=== PATIENT | male | born 1970 | race Caucasian/White ===

== ENCOUNTER 2016-12-18 08:55 | Day surgery (SDC) | payer OTHER ==
[~2016-12-18] VITALS: Ht 182.9 cm; Wt 87.0 kg
[~2016-12-18 08:55] MED LIST: 0.9% Sodium Chloride 1,000 ML IV SCH; ALBU8.5H2 INHALATION; AZEL23SP NS; CETI10CA PO; CYCL5TAB PO; ESOM40CA41 PO; FLUT16SP NS; MELO7.5O PO; RANI150T11 PO; Sodium Chloride LOK Flush 10 mL Syringe IV PRN; fentaNYL-PF 50 mCg/mL 2 mL Inj IVPUSH PRN
[2016-12-18 09:23] VITALS: BP 118/78; PULSE 73; O2SAT 100
[2016-12-18 10:11] VITALS: BP 116/73; PULSE 90; RESP 16; O2SAT 100
[2016-12-18 10:21] VITALS: BP 106/68; PULSE 82; RESP 16; O2SAT 100
--- NOTE | 2016-12-18 10:28 | ENDO ---
[address] [address] ENDOSCOPY PROCEDURE PATIENT: JASON EDDY : 1970 MR#: [id number] ADMIT: 12/18/2016 JOB ID: [id number] DATE: 12/18/2016 TYPE OF OPERATION: 1. Esophagogastroduodenoscopy with biopsy. 2. Colonoscopy with biopsy. PREOPERATIVE DIAGNOSIS(ES): 1. Gastroesophageal reflux disease. 2. History of abnormal polyps of the colon. POSTOPERATIVE DIAGNOSIS(ES): 1. Normal upper endoscopy, status post biopsy. 2. Sigmoid diverticulosis, mild. 3. A 2 mm sigmoid polyp removed by cold biopsy forceps. ANESTHESIA: 1. Fentanyl 100 mcg. 2. Versed 7 mg IV administered. COMPLICATIONS: None. BLOOD LOSS: Minimal. DESCRIPTION OF PROCEDURE: After risks and benefits were explained to the patient, informed consent was obtained. After anesthesia administered, upper endoscope was then inserted into mouth intubating the esophagus, stomach, second portion of duodenum, and the mucosa carefully examined. After the procedure was done, the scope was withdrawn and the procedure terminated. A colonoscope was then inserted from the rectum to the cecum. Mucosa carefully examined. Prep of the patient was excellent. After the procedure was done, the scope was withdrawn and the procedure terminated. FINDINGS: Upon inspection of the esophagus, the esophagus was normal without masses, ulcers or lesions. Z-line located at 40 cm from incisors. Upon entering the stomach, the stomach was normal without masses, ulcers or lesions. Retroflexion was normal. Duodenal bulb, first and second portion were normal. Biopsy of the antrum of the stomach and distal esophagus. Upon inspection of the anus, no masses, hemorrhoids, ulcers, or fissures that were seen. Throughout the entire examination, there was mild sigmoid diverticulosis. There was a 2 mm sigmoid colon polyp removed by cold biopsy forceps. Retroflexion was normal. IMPRESSIONS: 1. Normal upper endoscopy, status post biopsy. 2. Sigmoid diverticulosis. 3. A 2 mm sigmoid polyp removed by cold biopsy forceps. RECOMMENDATION: Await pathology results. Repeat colonoscopy in five years given history of tubular adenoma polyps. Followup in GI clinic as needed.
[2016-12-18 10:31] VITALS: BP 112/67; PULSE 89; RESP 16; O2SAT 100
--- NOTE | 2016-12-19 15:21 | PATH ---
SURGICAL PATHOLOGY Attending Physician:Gal Peterson MD CASE STATUS: Signed Out PATIENT NAME: JASON EDDY PID: [id number] : 1970 DATE COLLECTED:12/18/2016 17:38 SPECIMEN: 1: Stomach, Antrum, Biopsy 2: Gastric, Biopsy 3: Esophagus, Biopsy 4: Colon, Biopsy CLINICAL HISTORY: 1). ANTRUM BIOPSY 2). GASTRIC BIOPSY 3). DISTAL ESOPHAGUS BIOPSY 4). SIGMOID POLYP FINAL DIAGNOSIS: 1.ANTRUM BIOPSY: ANTRAL MUCOSA WITH NO DIAGNOSTIC ALTERATIONS. Negative for Helicobacter organisms. Negative for intestinal metaplasia. Negative for dysplasia and malignancy. 2.GASTRIC BIOPSY: BODY-TYPE MUCOSA WITH NO DIAGNOSTIC ALTERATIONS. Negative for Helicobacter organisms. Negative for intestinal metaplasia. Negative for dysplasia and malignancy. 3.DISTAL ESOPHAGUS BIOPSY: SQUAMOUS MUCOSA WITH NO DIAGNOSTIC ALTERATIONS. Negative for intestinal/Duffy' s metaplasia. Negative for dysplasia and malignancy. 4.SIGMOID POLYP: BENIGN COLONIC MUCOSA WITH INTRAMUCOSAL LYMPHOID AGGREGATE. Negative for dysplasia and malignancy. Multiple microscopic levels examined. ICD10 code K63.5 GROSS DESCRIPTION: The specimen is received in four formalin filled containers labeled with the patient's name. 1). The specimen is sublabeled "antrum" and consists of 2 portions of tissue which aggregate to 0.4 x 0.3 x 0.2 CM. The specimen is entirely submitted in cassette 1A. 2). The specimen is sublabeled "gastric" and consists of 3 portions of tissue which aggregate to 0.3 x 0.3 x 0.2 CM. The specimen is entirely submitted in cassette 2A. 3). The specimen is sublabeled "distal esophagus" and consists of 2 portions of tissue which aggregate to 0.3 x 0.3 x 0.2 CM. The specimen is entirely submitted in cassette 3A. 4). The specimen is sublabeled "sigmoid polyp" and consists of a 0.3 x 0.3 x 0.3 CM portion of tissue which is entirely submitted in cassettes 4A. 12/18/2016 [facility] MICRO DESCRIPTION: See diagnosis. ICD-9 CODES: CPT CODES: 1: 58623 2: 87261 3: 29708 4: 81635 Electronically Signed Out Lisbet Pena MD [facility] Pathology [facility] [address] [place] [address] Technical component performed at [facility], [address], [place], [address]
== END 2016-12-18 23:59 | disposition home or self-care (01) ==
LOC: END 08:55
PROVIDERS: ATTEND Internal Medicine Gastroenterology
DX: Z12.11 Encounter for screening for malignant neoplasm of colon (principal); K63.5 Polyp of colon; K57.30 Diverticulosis of large intestine without perforation or abscess without bleeding; Z86.010 Personal history of colon polyps; Z80.0 Family history of malignant neoplasm of digestive organs; K21.9 Gastro-esophageal reflux disease without esophagitis; J45.909 Unspecified asthma, uncomplicated; M54.5 Low back pain; Z79.51 Long term (current) use of inhaled steroids
CPT/HCPCS: 43239; 45380; 99153; G0500; J7030